=== PATIENT | male | born 1960 | race Caucasian/White ===

== ENCOUNTER → 2020-10-29 | Outpatient (CLI) | payer OTHER ==
[~2020-10-29] MED LIST: ALDACTONE25 MG PO; AMITRIPTYLINE H25 MG PO; BASAGLAR K100 UNIT/1 SC; BASAGLAR K100 UNIT/1 SQ; CATAPRES 0.1MG0.1 MG PO; CEFUROXIME500 MG PO; CELEBREX200 MG PO; CHRONULAC20 GM/30 M PO; CYCLOBENZAPRINE10 MG PO; FLONASE 0.05% N16 GM; FOLIC ACID 1 MG1 MG PO; GABAPENTIN100 MG PO; GABAPENTIN300 MG PO; GLUCOPHAGE1000 MG PO; HUMALOG 10100 UNITS/ SC; HUMALOG MI100 UNIT/3 SQ; HUMALOG MI100 UNIT/4 SQ; INSULIN SYRING1 EAC1 MC; KEFLEX CAP 500500 MG PO; KLOR-CON M2020 MEQ PO; LANTUS INS100 UTS/M1 SC; LEVAQUIN500 MG PO; LISINOPRIL2.5 MG PO; LOPRESSOR 25 MG25 MG PO; LORTAB 5-325 M1 EACH PO; MACROBID 100 M100 MG PO; METHOTREXATE T2.5 MG PO; METOPROLOL TART25 MG PO; NEEDLE1 EA11 MC; NEURONTIN600 MG PO; NORVASC10 MG PO; NOVOLOG FL100 UNIT/1 INJ; OZEMPIC0.25 MG/0. SQ; POTASSIUM CHLO20 ME2 PO; PYRIDIUM100 MG PO; TRICOR 145 MG145 MG PO; ZOFRAN4 MG PO
== END ==
LOC: US 14:57
DX: N13.9 Obstructive and reflux uropathy, unspecified (principal); N17.9 Acute kidney failure, unspecified; N32.89 Other specified disorders of bladder
CPT/HCPCS: 76857

== ENCOUNTER 2021-01-10 21:04 | Inpatient (IN) | payer OTHER ==
[~2021-01-10] VITALS: Ht 175.3 cm; Wt 86.2 kg
[~2021-01-10 21:04] MED LIST changes: -GABAPENTIN100 MG PO; -NOVOLOG FL100 UNIT/1 INJ
[2021-01-10 21:58] LABS: HEMOGLOBIN 10.6 gm/dl (14.0-17.5); RED BLOOD COUNT 3.72 M/UL (4.20-5.50); WHITE BLOOD COUNT 10.3 K/UL (4.5-11.0)
--- NOTE | 2021-01-11 03:12 | NUR ---
NOTIFIED DR IRBY OF ELEVATED BP. RECIEVED ORDERS. WILL CONTINUE TO MONITOR.
[2021-01-13 09:14] LABS: HBSAG SCREEN Negative (Negative); HEP A AB, IGM Negative (Negative); HEP B CORE AB, IGM Negative (Negative); HEP C VIRUS AB 0.1 (0.0-0.9)
[2021-01-14 04:30] LABS: HEMOGLOBIN 8.7 gm/dl (14.0-17.5); RED BLOOD COUNT 3.1 M/UL (4.20-5.50); WHITE BLOOD COUNT 7.6 K/UL (4.5-11.0)
[2021-01-14] MEDS ORDERED: NOVOLOG FL100 UNIT/1 INJ (09:47)
[2021-01-14] MEDS ORDERED: GABAPENTIN100 MG PO (16:27)
== END 2021-01-14 17:27 | disposition home or self-care (01) | DRG 291 ==
LOC: ER1 21:04 → CDU 01-11 01:10 → MED SURG 4 01-11 01:10
PROVIDERS: Family Medicine; Internal Medicine Nephrology; Physician Assistant; ADMIT Internal Medicine
PROC: 5A1D70Z Performance of Urinary Filtration, Intermittent, Less than 6 Hours Per Day (ICD-10-PCS; principal; 2021-01-12)
PROC: 05HM33Z Insertion of Infusion Device into Right Internal Jugular Vein, Percutaneous Approach (ICD-10-PCS; 2021-01-13)
PROC: B513ZZA Fluoroscopy of Right Jugular Veins, Guidance (ICD-10-PCS; 2021-01-13)
DX: I13.2 Hypertensive heart and chronic kidney disease with heart failure and with stage 5 chronic kidney disease, or end stage renal disease (principal); I26.99 Other pulmonary embolism without acute cor pulmonale; N18.6 End stage renal disease; N17.9 Acute kidney failure, unspecified; R07.89 Other chest pain; E11.22 Type 2 diabetes mellitus with diabetic chronic kidney disease; G89.29 Other chronic pain; Z20.822 Contact with and (suspected) exposure to COVID-19; I50.9 Heart failure, unspecified; D64.9 Anemia, unspecified; Z79.4 Long term (current) use of insulin; Z87.440 Personal history of urinary (tract) infections; Z84.1 Family history of disorders of kidney and ureter
CPT/HCPCS: 36415; 71045; 77001; 78579; 80048; 80053; 80069; 80074; 82550; 82553; 82962; 83874; 83880; 84484; 85025; 85379; 90935; 90937; 93005; 96372; 96374; 96375; 99285; A9540; G0378; J0360; J0690; J1642; J1644; J1940; U0002

== ENCOUNTER → 2021-03-12 | Outpatient (CLI) | payer OTHER ==
[~2021-03-12] MED LIST changes: +GABAPENTIN100 MG PO; +NOVOLOG FL100 UNIT/1 INJ
== END ==
LOC: HEART 5 03-11 09:00
DX: R00.2 Palpitations (principal); I08.3 Combined rheumatic disorders of mitral, aortic and tricuspid valves; I27.20 Pulmonary hypertension, unspecified; I31.3 Pericardial effusion (noninflammatory)
CPT/HCPCS: 93306

== ENCOUNTER 2022-01-07 14:34 | Emergency (ER) | payer OTHER ==
[2022-01-07 15:14] LABS: HEMOGLOBIN 11.4 gm/dl (14.0-17.5); RED BLOOD COUNT 3.69 M/UL (4.20-5.50); WHITE BLOOD COUNT 10.2 K/UL (4.5-11.0)
== END 2022-01-07 20:15 | disposition home or self-care (01) ==
LOC: ER1 14:34
PROVIDERS: Preventive Medicine Occupational Medicine
DX: E11.649 Type 2 diabetes mellitus with hypoglycemia without coma (principal); I10 Essential (primary) hypertension; Z20.822 Contact with and (suspected) exposure to COVID-19
CPT/HCPCS: 0240U; 71045; 80053; 82550; 82553; 82962; 83690; 84484; 85025; 85652; 86140; 93005; 96374; 96375; 96376; 99285; J1610